=== PATIENT | male | born 1955 | race American Indian/Alaskan Native ===

== ENCOUNTER 2021-12-29 08:02 | Outpatient (CLI) | payer OTHER ==
--- NOTE | 2021-12-29 09:16 | XRay Report ---
BILATERAL KNEES STANDING AP VIEW INDICATION: BILATERAL KNEE PAIN. COMPARISON: None. IMPRESSION: Bilateral knee arthroplasties are present which appear intact. There is normal alignment at the joint. No obvious acute bony findings. The soft tissues are unremarkable. Signer Name: Rasheed Valladares Jr, MD Signed: 12/29/2021 9:11 AM Workstation Name: [id number]
== END 2021-12-29 08:03 | disposition home or self-care (01) ==
LOC: XRAY 08:02
PROVIDERS: ATTEND Internal Medicine
DX: M25.562 Pain in left knee (principal); M25.561 Pain in right knee; Z96.653 Presence of artificial knee joint, bilateral
CPT/HCPCS: 73565

== ENCOUNTER 2021-12-30 11:51 | Outpatient (CLI) | payer OTHER ==
[2021-12-30 12:50] LABS: Alanine Aminotransferase 10 units/L (7-56); Albumin 4.3 g/dL (3.9-5); BUN/Creatinine Ratio 10; Blood Urea Nitrogen 12 mg/dL (9-20); Calcium 9.5 mg/dL (8.4-10.2); Hemolysis Index 6
== END 2021-12-30 11:52 | disposition home or self-care (01) ==
LOC: LAB 11:51
PROVIDERS: ATTEND Internal Medicine
DX: E11.9 Type 2 diabetes mellitus without complications (principal); N40.0 Benign prostatic hyperplasia without lower urinary tract symptoms
CPT/HCPCS: 36415; 80053